=== PATIENT | female | born 1995 | race Two or more races ===

== ENCOUNTER 2025-03-18 08:42 | Emergency (ER) | payer BC, OTHER ==
[~2025-03-18] VITALS: Ht 172.7 cm; Wt 101.5 kg
[2025-03-18 10:21] LABS: Hematocrit 42.6 % (36.0-46.0); Hemoglobin 14.7 g/dL (12.2-16.2); Mean Corpuscular Hemoglobin 30.2 pg (28.0-32.0); Mean Corpuscular Volume 87.6 fL (80.0-100.0); Nucleated Red Blood Cells % 0.1 %
[2025-03-18 10:35] VITALS: PULSE 81; RESP 17; O2SAT 98
[2025-03-18 11:44] LABS: Urine Protein, UAD TRACE (Negative)
--- NOTE | 2025-03-18 12:09 | DVH ---
OB ULTRASOUND <14 WEEKS: HISTORY: bleeding TECHNIQUE: Multiple real-time grayscale sonographic images of the pelvis with duplex Doppler color f low, spectral and M-mode analysis. TRANSDUCERS: Transabdominal and transvaginal COMPARISON: None FINDINGS: The uterus measures 8.1 x 4.2 x 5.0 cm. Endometrium measures 0.9 cm. The cervix is not visualized Right ovary measures 2.7 x 3.5 x 3.5 cm with normal Doppler color flow. Left ovary measures 3.0 x 3.2 x 2.5 cm with normal Doppler color flow. No intrauterine is visualized at this time. IMPRESSION: Thickened endometrium, without visualized gestational sac, pole or cardiac activity. Diff erential considerations include early, normal intrauterine , an anembryonic and sp ontaneous . Recommend correlation with follow-up beta hCG levels. Repeat ultrasound could be performed if clinically indicated.
--- NOTE | 2025-03-18 12:39 | ED.PDOC ---
History of Present Illness HPI Comments 30-year-old female came to the ER stating that she has been having vaginal bleeding since last night. Her last menstrual period was February 10. two. 0 live. One miscarriage. Patient denies abdominal cramping. Denies any past medical history. Denies any other symptoms. Chief Complaint: Vaginal Bleed Time Seen by MD: 08:53 Reviewed Notes: Nurses Notes, Medications, Allergies Allergies: Coded Allergies: NO KNOWN ALLERGIES (Unverified , 03/18/25) Information Source: Patient Mode of Arrival: Ambulatory Severity: Mild Timing: Days Duration: Since onset Past Medical History PAST MEDICAL HISTORY: Denies Surgical History: Denies all surgeries AIR CONDITIONING ENGINEER History: No Pertinent AIR CONDITIONING ENGINEER History Social History Smoker: Non-Smoker Alcohol: Denies ETOH Use Drugs: Denies Drug Use Constitutional: denies: chills, diaphoresis, fatigue, fever, malaise, sweats, weakness, others EENTM: denies: blurred vision, double vision, ear bleeding, ear discharge, ear drainage, ear pain, ear ringing, eye pain, eye redness, hearing loss, mouth pain, mouth swelling, nasal discharge, nose bleeding, nose congestion, nose pain, photophobia, tearing, throat pain, throat swelling, voice changes, others Respiratory: denies: cough, hemoptysis, orthopnea, SOB at rest, shortness of breath, SOB with excertion, stridor, wheezing, others Cardiovascular: denies: chest pain, dizzy spells, diaphoresis, Dyspnea on exertion, edema, irregular heart beat, left arm pain, lightheadedness, palpitations, PND, syncope, others Gastrointestinal: denies: abdomen distended, abdominal pain, blood streaked bowels, constipated, diarrhea, dysphagia, difficulty swallowing, hematemesis, melena, nausea, poor appetite, poor fluid intake, rectal bleeding, rectal pain, vomiting, others Genitourinary: reports: abnormal vagina bleeding; denies: burning, dyspareunia, dysuria, flank pain, frequency, hematuria, incontinence, pain, , vagina discharge, urgency, others Neurological: denies: dizziness, fainting, headache, left sided numbness, left sided weakness, numbness, paresthesia, pre-existing deficit, right sided numbness, right sided weakness, seizure, speech problems, tingling, tremors, weakness, others Musculoskeletal: denies: back pain, gout, joint pain, joint swelling, muscle pain, muscle stiffness, neck pain, others Integumetry: denies: bruises, change in color, change in hair/nails, dryness, laceration, lesions, lumps, rash, wounds, others Allergic/Immunocompromised: denies: Difficulty Healing, Frequent Infections, Hives, Itching, others Hematologic/Lymphatic: denies: anemia, blood clots, easy bleeding, easy bruising, swollen glands, others Endocrine: denies: excessive hunger, excessive sweating, excessive thirst, excessive urination, flushing, intolerance to cold, intolerance to heat, unexplained weight gain, unexplained weight loss, others Psychiatric: denies: anxiety, bipolar disorder, depression, hopeless, panic disorder, schizophrenia, sleepless, suicidal, others Physical Exam General Appearance: Moderate Distress HEENT: Normal ENT Inspection, Pharynx Normal, TMs Normal Neck: Full Range of Motion, Non-Tender, Normal, Normal Inspection Respiratory: Chest Non-Tender, Lungs Clear, No Accessory Muscle Use, No Respiratory Distress, Normal Breath Sounds Cardiovascular: No Edema, No JVD, No Murmur, No Gallop, Normal Peripheral Pulses, Regular Rate/Rhythm Breast Exam: Deferred Gastrointestinal: No Organomegaly, Non Tender, No Pulsatile Mass, Normal Bowel Sounds, Soft Genitalia: Deferred Pelvic: Deferred Rectal: Deferred Extremities: No calf tenderness, Normal capillary refill, Normal inspection, N ormal range of motion, Non-tender, No pedal edema Musculoskeletal : Apperance: Normal Neurologic: Alert, 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 Was a procedure done?: No Differential Dx Considerations may include: Anemia Electrolyte imbalance X-Ray, Labs, Meds, VS Vital Signs Date Time Temp Pulse Resp B/P (MAP) Pulse Ox O2 Delivery O2 Flow Rate FiO2 03/18/25 10:35 98.6 81 17 124/75 (91) 98 98.6 03/18/25 10:35 81 17 98 Room Air* 0 21 03/18/25 08:44 97.9 69 15 124/86 97 97.9 Lab Test 03/18/25 11:31 03/18/25 09:55 Range/Units Urine Color Light-brown Yellow Urine Clarity Turbid H Clear Urine pH 5.5 5.0-9.0 Urine Specific [place] 1.018 1.001-1.035 Urine Protein Trace H Negative Urine Ketones Negative Negative Urine Blood 3+ H Negative /uL Urine Nitrite Negative Negative Urine Bilirubin Negative Negative Urine Urobilinogen Normal Negative mg/dL Urine Leukocyte Esterase Negative Negative /uL Urine RBC 2387 0 - 4 /hpf Urine Microscopic WBC 21 H 0-5 /HPF Urine Squamous Epithelial Cells Few <5 /hpf Urine Bacteria None seen None Seen /hpf Urine Mucus Few None Seen Urine Glucose Normal Normal mg/dL Urine Test Negative Negative White Blood Count 7.8 4.4-10.8 10^3/uL Red Blood Count 4.87 4.0-5.20 10^6/uL Hemoglobin 14.7 12.2-16.2 g/dL Hematocrit 42.6 36.0-46.0 % Mean Corpuscular Volume 87.6 80.0-100.0 fL Mean Corpuscular Hemoglobin 30.2 28.0-32.0 pg Mean Corpuscular Hemoglobin Concent 34.4 32.0-36.0 g/dL Red Cell Distribution Width 14.4 H 11.8-14.3 % Platelet Count 474 H 140-450 10^3/uL Mean Platelet Volume 8.3 6.9-10.8 fL Neutrophils (%) (Auto) 64.4 37.0-80.0 % Lymphocytes (%) (Auto) 26.5 10.0-50.0 % Monocytes (%) (Auto) 6.3 0.0-12.0 % Eosinophils (%) (Auto) 2.2 0.0-7.0 % Basophils (%) (Auto) 0.6 0.0-2.0 % Neutrophils # (Auto) 5.0 1.6-8.6 10 ^3/uL Lymphocytes # (Auto) 2.1 0.4-5.4 10 ^3/uL Monocytes # (Auto) 0.5 0-1.3 10 ^3/uL Eosinophils # (Auto) 0.2 0-0.8 10 ^3/uL Basophils # (Auto) 0.1 0-0.2 10 ^3/uL Nucleated Red Blood Cells 0.1 % Beta HCG, Quantitative 13.6 H 1.5-4.2 mIU/mL Patient alert. Complaining of vaginal bleeding. Beta hCG is very low. Vitals stable. WBC within normal limits. Ultrasound does reveal no gestational sac. No leg swelling. No chest pain. Explained to the patient she will need to follow. Was told to follow up with her primary care physician. Was told to come back if there is any problem. [place] [id number] Ph: [phone] DIAGNOSTIC IMAGING Diagnostic Imaging Report : [id number] Signed PATIENT: LIBERTY FERNANDEZ ACCT: [id number] UNIT: [id number] : 1995 LOC: ER ROOM / BED: / AGE / SEX: 30 / F ADM STATUS: REG ER SERVICE [id number] ORDERING PHYSICIAN: APRIL GRUBER MD PROCEDURE(s): OB4US - OB ULTRASOUND COMP LESS 14WKS REASON: bleeding ORDER NUMBER(s): [id number], ACCESSION NUMBER(s): [id number] OB ULTRASOUND <14 WEEKS: HISTORY: bleeding TECHNIQUE: Multiple real-time grayscale sonographic images of the pelvis with duplex Doppler color flow, spectral and M-mode analysis. TRANSDUCERS: Transabdominal and transvaginal COMPARISON: None FINDINGS: The uterus measures 8.1 x 4.2 x 5.0 cm. Endometrium measures 0.9 cm. The cervix is not visualized Right ovary measures 2.7 x 3.5 x 3.5 cm with normal Doppler color flow. Left ovary measures 3.0 x 3.2 x 2.5 cm with normal Doppler color flow. No intrauterine is visualized at this time. IMPRESSION: Thickened endometrium, without visualized gestational sac, pole or cardiac activity. Differential considerations include early, normal intrauterine , an anembryonic and spontaneous . Recommend correlation with follow-up beta hCG levels. Repeat ultrasound could be performed if clinically indicated. ATED BY: ORSETES PEREZ MD DICTATED DATE/TIME: 03/18/25 [id number] SIGNED BY: ORESTES PEREZ MD SIGNED DATE/TIME: 03/18/251206 CC: [place] [id number] Ph: [phone] DIAGNOSTIC IMAGING Diagnostic Imaging Report : [id number] Signed PATIENT: LIBERTY FERNANDEZ ACCT: [id number] UNIT: [id number] : 1995 LOC: ER ROOM / BED: / AGE / SEX: 30 / F ADM STATUS: REG ER SERVICE 0000 ORDERING PHYSICIAN: APRIL GRUBER MD PROCEDURE(s): OBTVG - OB TRANS VAGINAL US REASON: VAG BLEED ORDER NUMBER(s): [id number], ACCESSION NUMBER(s): [id number] OB ULTRASOUND <14 WEEKS: HISTORY: bleeding TECHNIQUE: Multiple real-time grayscale sonographic images of the pelvis with duplex Doppler color flow, spectral and M-mode analysis. TRANSDUCERS: Transabdominal and transvaginal COMPARISON: None FINDINGS: The uterus measures 8.1 x 4.2 x 5.0 cm. Endometrium measures 0.9 cm. The cervix is not visualized Right ovary measures 2.7 x 3.5 x 3.5 cm with normal Doppler color flow. Left ovary measures 3.0 x 3.2 x 2.5 cm with normal Doppler color flow. No intrauterine is visualized at this time. IMPRESSION: Thickened endometrium, without visualized gestational sac, pole or cardiac activity. Differential considerations include early, normal intrauterine , an anembryonic and spontaneous . Recommend correlation with follow-up beta hCG levels. Repeat ultrasound could be performed if clinically indicated. ATED BY: ORESTES PEREZ MD DICTATED DATE/TIME: 03/18/251206 SIGNED BY: ORESTES PEREZ MD SIGNED DATE/TIME: 03/18/251206 CC: Time of 1ST Reevaluation: 12:38 Reevaluation 1ST: Unchanged Patient Education/Counseling: Diagnosis, Treatment, Prognosis, Need For Follow Up Family Education/Counseling: No Family Present SEPSIS Sepsis Screen Date sepsis recognized/suspect: Mar 18, 2025 Time Sepsis recognized/suspect: 0846 Recent Procedure: No On Antibiotic Therapy: No Respiratory Rate >20: No Heart Rate >90: No Temp<36 C (96.8 F) or >38.3 C: No SBP <90 or MAP <65 mmHG: No New Acute Mental Status Change: No Is the patient on CPAP, BIPAP,: No Physician Orders Ob Ultrasound Comp Less 14wks (03/18/25 09:35) Ob Trans Vaginal Us (03/18/25 ) Vital Signs Date Time Temp Pulse Resp B/P (MAP) Pulse Ox O2 Delivery O2 Flow Rate FiO2 03/18/25 10:35 98.6 81 17 124/75 (91) 98 98.6 03/18/25 10:35 81 17 98 Room Air* 0 21 03/18/25 08:44 97.9 69 15 124/86 97 97.9 Laboratory Tests Test 03/18/25 09:55 White Blood Count 7.8 10^3/uL (4.4-10.8) Departure 1 Departure Time of Disposition: 12:39 Impression: Primary Impression: Vaginal bleeding affecting early Disposition: 01 HOME / SELF CARE / HOMELESS Condition: Good Discharged With: Self Critical Care Note Critical Care Time?: No Stability Stability form required: No Heart Score Heart Score: Heart Score Response (Comments) Value History N/A 0 EKG N/A 0 Age N/A 0 Risk Factors N/A 0 Troponin N/A 0 Total 0 I personally scribed for APRIL GRUBER MD ([email or web address]) on 03/18/25 at 12:47. Electronically submitted by Gema Fernandez ([email or web address]). I personally scribed for APRIL GRUBER MD ([email or web address]) on 03/18/25 at 12:48. Electronically submitted by Gema Fernandez ([email or web address]). APRIL GRUBER MD Mar 18, 2025 12:39
[2025-03-18 13:00] VITALS: BP 151/74; PULSE 68; RESP 17; TEMP 98.5; O2SAT 98
== END 2025-03-18 13:00 | disposition home or self-care (01) ==
LOC: ER 08:42
DX: Z34.90 Encounter for supervision of normal pregnancy, unspecified, unspecified trimester (principal); Z3A.00 Weeks of gestation of pregnancy not specified
CPT/HCPCS: 36415; 76801; 76817; 81001; 81025; 84702; 85025

== ENCOUNTER → 2025-03-19 | Outpatient (CLI) | payer BC | END | disposition home or self-care (01) | LOC: LAB 10:34 | PROVIDERS: ATTEND Obstetrics & Gynecology | DX: O03.9 Complete or unspecified spontaneous abortion without complication (principal) | CPT/HCPCS: 36415; 84702 ==